=== PATIENT | male | born 2000 | race American Indian/Alaskan Native ===

== ENCOUNTER 2021-02-27 10:11 | Emergency (ER) | payer BC ==
[2021-02-27 10:17] VITALS: BP 138/87
--- NOTE | 2021-02-27 12:13 | Emergency Department Report ---
- General Chief complaint: Skin Rash Stated complaint: RASH Time Seen by Provider: 02/27/21 11:06 Source: patient Mode of arrival: Ambulatory Limitations: No Limitations - History of Present Illness Initial comments: Patient is a 20-year-old male presents emergency room with complaints of a skin rash present to his palms and the soles of his feet that began a couple days ago. He states that it does not itch. He denies any other symptoms at all. He denies any fever, nausea, vomiting, diarrhea, facial swelling, rash anywhere else, dysuria, penile discharge, pain or swelling the testicles, abdominal pain. He reports he is sexually active and states that he uses protection. He denies any past medical history. No allergies to medications. - Related Data Allergies Allergy/AdvReac Type Severity Reaction Status Date / Time No Known Allergies Allergy Unverified 02/27/21 10:13 Abscess Boil HPI - HPI Chief Complaint: Skin Rash Stated Complaint: RASH Time Seen by Provider: 02/27/21 11:06 Allergies/Adverse Reactions: Allergies Allergy/AdvReac Type Severity Reaction Status Date / Time No Known Allergies Allergy Unverified 02/27/21 10:13 ED Review of Systems ROS: Stated complaint: RASH Other details as noted in HPI Comment: All other systems reviewed and negative ED Physical Exam - General Limitations: No Limitations General appearance: alert, in no apparent distress - Head Head exam: Present: atraumatic, normocephalic - Eye Eye exam: Present: normal appearance - Respiratory Respiratory exam: Present: normal lung sounds bilaterally. Absent: respiratory distress, wheezes, rales, rhonchi, stridor, chest wall tenderness, accessory muscle use, decreased breath sounds, prolonged expiratory - Cardiovascular Cardiovascular Exam: Present: regular rate, normal rhythm, normal heart sounds. Absent: systolic murmur, diastolic murmur, rubs, gallop - Neurological Exam Neurological exam: Present: alert, oriented X3 - Psychiatric Psychiatric exam: Present: normal affect, normal mood - Skin Skin exam: Present: warm, dry, other (small reddish brown macules present to the palms of the hands and soles of the feet) ED Course Vital Signs 02/27/21 10:15 Temperature 98.1 F Pulse Rate 69 Respiratory 16 Rate Blood Pressure 138/87 O2 Sat by Pulse 99 Oximetry - Reevaluation(s) Reevaluation #1: 02/27/21 12:14 called lab regarding delay in pts results, advised they are performing quality controls on machine 02/27/21 13:17 called lab again regarding delay in patients results, they advised the specimen is just now going on the machine ED Medical Decision Making - Medical Decision Making Patient is a 20-year-old male presents emergency room with complaints of a skin rash present to his palms and the soles of his feet that began a couple days ago. He states that it does not itch. He denies any other symptoms at all. He denies any fever, nausea, vomiting, diarrhea, facial swelling, rash anywhere else, dysuria, penile discharge, pain or swelling the testicles, abdominal pain. He reports he is sexually active and states that he uses protection. He denies any past medical history. No allergies to medications. Vitals are stable. On exam:small reddish brown macules present to the palms of the hands and soles of the feet. Rapid syphilis is negative. Patient now reports to me that his niece had dxnu-twjx-wse-mouth last week. Patient shows me that he has small vesicles underneath the nose but no involvement over the oropharynx or mouth. Examination now appears consistent with heud-wdnc-ska-mouth. Discussed zmqy-okvf-kjs-mouth with patient. Discussed supportive care and symptomatic treatment. Advised patient Please follow-up with a primary care doctor. Please follow-up with a dye tub operator. Return to emergency room for any new or worsening symptoms. Critical care attestation.: If time is entered above; I have spent that time in minutes in the direct care of this critically ill patient, excluding procedure time. ED Disposition Clinical Impression: Rash Disposition: 01 HOME / SELF CARE / HOMELESS Is pt being admited?: No Does the pt Need Aspirin: No Condition: Stable Instructions: Rash, Adult, [id number] Additional Instructions: Please follow-up with a primary care doctor. Please follow-up with a dye tub operator. Return to emergency room for any new or worsening symptoms. [facility] in [place], [place] Address: [address] [place] [address] Luiza Hill MD [facility] Work[facility] in [place], [place] Address: [address] [place] [address] [facility] Address: [place] [address] Areas served: [facility] and nearby areas Referrals: PRIMARY CAREMD [Primary Care Provider] - 2-3 Days [facility] [Provider Group] - 2-3 Days SEVERIANO BOBO MD [Staff Physician] - 2-3 Days Time of Disposition: 13:52 Print Language: SOUTH AFR[place]
== END 2021-02-27 14:15 | disposition home or self-care (01) ==
LOC: ED 10:11
DX: R21 Rash and other nonspecific skin eruption (principal)
CPT/HCPCS: 36415; 86592; 99283